=== PATIENT | male | born 1955 | race Caucasian/White ===

== ENCOUNTER 2016-06-13 16:14 | Inpatient (IN) | payer OTHER ==
[~2016-06-13] VITALS: Ht 193 cm; Wt 134.4 kg
--- NOTE | ~2016-06-13 | CON ---
[place], [place] REPORT OF CONSULTATION NAME: HAVEN CASTILLO UNIT #: [id number] ROOM: 407 DOCTOR: FRANCOIS BESS MD BIRTHDATE: [birth year] DOS: CARDIOLOGY CONSULTATION The patient was referred for evaluation of tachycardia. HISTORY OF PRESENT ILLNESS: This patient is a 61-year-old man who does have a history of hypertension and type 2 diabetes mellitus as well as a bipolar disorder. For the last 5 days, he has had increased cough, weakness and dyspnea. He was seen in the Emergency Room 3 days ago, treated with a breathing treatment and antibiotics. He was sent home on antibiotics alone, but the following day still felt weak and breathless. He was therefore brought back to the Emergency Room where he was evaluated and admitted. Initially in the Emergency Room, his pulse was 136. Electrocardiogram showed sinus tachycardia. He had no definite arrhythmia aside from the sinus tachycardia. He is being treated for an exacerbation of obstructive lung disease and asthma and we were asked to assess the cause of his tachycardia. The patient states that he has had chest pain in the past. He did have catheterizations at the [facility] in [place] approximately 18 years ago and again 6 years ago. According to the patient, the results of these studies were normal. He has not had a recent echocardiogram or stress test. PAST MEDICAL HISTORY: 1. Essential hypertension. 2. Type 2 diabetes mellitus. 3. Obstructive sleep apnea. 4. Insulin resistance. 5. Gout. 6. Diverticulosis. 7. History of pain medication overdose approximately 6 years ago. The patient had a severe pain from left first toe amputation. This was precipitated by an infection caused by an ingrown toenail. The patient was unconscious for several weeks and was on a ventilator much of that time. He subsequently had to have a tracheostomy. 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 8. History of bursitis, left elbow requiring surgery. REVIEW OF SYSTEMS: The patient denies diplopia or loss of vision. He denies lightheadedness or syncope. He denies orthopnea or PND. He actually denies palpitations, although he is aware that his heart is beating fast since we have pointed it out to him. He denies any current chest pain. He denies nausea or vomiting. He denies fevers, chills, sweats or recent weight change. He denies any focal weakness. He denies hemoptysis or hematemesis. He denies any change in bowel or bladder habits and denies bleeding from his urine or bowels. He denies any skin rashes. He denies peripheral edema or swollen joints. He has had an amputation of his left first toe. The rest of the review of systems is negative except as noted above. FAMILY HISTORY: Negative for early coronary artery disease. His mother had [place], [place] REPORT OF CONSULTATION NAME: HAVEN CASTILLO UNIT #: [id number] ROOM: 407 DOCTOR: FRANCOIS BESS MD BIRTHDATE: [birth year] lung cancer and his father had testicular cancer. SOCIAL HISTORY: The patient does not drink alcohol. He was a smoker, but has been abstinent for several years. He does not use any illicit drugs. MEDICATIONS: Prior to admission, glimepiride 4 mg b.i.d., levofloxacin 500 mg daily, lisinopril 20 mg daily, omeprazole 20 mg b.i.d., paroxetine 60 mg daily, glargine insulin 70 units subcutaneous daily and Humalog by sliding scale a.c. and at bedtime. ALLERGIES: THE PATIENT LISTS AN ALLERGY TO METHYLPREDNISOLONE. PHYSICAL EXAMINATION: GENERAL: Reveals an overweight white male who is awake, alert and oriented. He does look older than his stated age. VITAL SIGNS: Pulse is 100 and regular; blood pressure is 129/80. He is afebrile. HEENT: Normocephalic, atraumatic. Extraocular muscles are intact. Sclerae are clear. Pupils are equal, round and reactive to light. The oral mucosa is moist. Tongue is midline. NECK: Supple. He has no jugular distention. Carotids are full. I heard no bruits. He had no neck or supraclavicular masses and no thyromegaly. LUNGS: Respirations are unlabored. His chest is clear to auscultation and percussion. He has no presacral edema or chest wall tenderness. CARDIOVASCULAR: His heart has a regular rhythm. He has a fourth heart sound, but no third heart sound or murmur. The PMI is not displaced. He has no precordial heave, lift or thrill. ABDOMEN: Obese, but otherwise benign, without masses, organomegaly, bruits or tenderness. There is no rebound. EXTREMITIES: Showed no clubbing, cyanosis or edema. His left first toe is surgically absent pedal pulses; however, are bounding bilaterally. He has no hot or swollen joints and no obvious skin rashes. LABORATORY DATA: His electrocardiogram today shows sinus tachycardia with a rightward axis. It is otherwise normal tracing. CT angiogram of the chest was negative for pulmonary emboli. Hemoglobin is 13.8 with a white count of 7600. INR is 0.9. Sodium is 137, potassium 3.9, BUN 21, creatinine 0.9, sugar was 538 on admission. TSH appears to be suppressed. Initially, it was 0.348 and upon repeat it was 0.295 suggesting that the patient might have hyperthyroidism. IMPRESSIONS: 1. Sinus tachycardia. This is almost always a reaction to external factors rather than a primary heart problem. Inciting factors may include hyperthyroidism, dehydration work of breathing, bronchodilators, etc. In addition, I have reviewed his medications. Paxil in doses over 40 mg per day has been associated with sinus tachycardia in the past. 2. Essential hypertension. [place], [place] REPORT OF CONSULTATION NAME: HAVEN CASTILLO UNIT #: [id number] ROOM: 407 DOCTOR: FRANCOIS BESS MD BIRTHDATE: [birth year] 3. Type 2 diabetes mellitus managed with insulin. 4. 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 5. Obesity. PLAN: For now, the patient is being managed for an acute exacerbation of COPD. He is also being evaluated for possible hyperthyroidism. We will check an echocardiogram. I would request that the primary team decrease his dose of paroxetine. I will not treat his tachycardia, primarily at this point unless he becomes symptomatic. We will follow him with his other physicians and we thank the hospitalist group for asking our advice regarding his assessment. FRANCOIS BESS MD CM:CONSTR:REPORT OF CONSULTATION [id number] 06/15/16 1144 carolyn VILLANUEVA DO
--- NOTE | ~2016-06-13 | PR ---
[place], [place] PROGRESS NOTE NAME: HAVEN CASTILLO UNIT #: [id number] ROOM: 407 DOCTOR: FRANCOIS BESS MD BIRTHDATE: [birth year] DOS: 06/16/2016 CARDIOLOGY PROGRESS NOTE SUBJECTIVE: The patient was seen at his bedside today, 06/16/2016. He is a 61-year-old man who presented to the hospital with an acute exacerbation of underlying lung disease. He also has hypertension, type 2 diabetes mellitus and a bipolar disorder. He was noted to be tachycardic on admission. I evaluated the patient yesterday. His echocardiogram showed mild concentric left ventricular hypertrophy with hyperdynamic left ventricular systolic function. The filling pattern was normal for his age. The left atrium was mildly enlarged. There were no valve abnormalities. I felt that his tachycardia was multifactorial and due to possible hyperthyroidism, dehydration, work of breathing, bronchodilators, etc. In addition, I noted the Paxil had been associated with sinus tachycardia in other patients. Today, the patient's heart rate is in the 80s-90s and he feels well. His breathing is still limited, but is improving. No other cardiac workup is planned at this time. I think that as his breathing improves, his heart rate will continue to improve. PHYSICAL EXAMINATION: VITAL SIGNS: On exam today, his pulse is 88 and regular, blood pressure is 163/83. He is afebrile. NECK: Supple. He has no jugular distention. CHEST: Clear with expiratory prolongation, but no wheezes or rales. HEART: His heart has a regular rhythm with an S4 gallop, but no S3. ABDOMEN: Obese, but otherwise benign. EXTREMITIES: Showed no edema. IMPRESSION: 1. Sinus tachycardia. 2. Essential hypertension. 3. Type 2 diabetes mellitus on insulin. 4. 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 5. Obesity. PLAN: No other cardiac workup is planned at this time. We will be available to see him as needed and we thank the hospitalist group for asking our advice regarding his care. [place], [place] PROGRESS NOTE NAME: HAVEN CASTILLO UNIT #: [id number] ROOM: 407 DOCTOR: FRANCOIS BESS MD BIRTHDATE: [birth year] FRANCOIS BESS MD CM:PNTRANS [id number] FRANCOIS BESS MD 06/17/16 0326 interface
[~2016-06-13 16:14] MED LIST: ADVAIR 500/501 E1 IH; AMARYL4 MG PO; ANTIVERT/2525 M1 PO; ARTHROTEC50 MG PO; ASPIRIN ENTERIC81 M1 PO; ASPIRIN81 M1 PO; ATARAX25 MG PO; BACTRIM 400 MG-1 TAB PO; BACTRIM DS 8001 TA1 PO; BEPREVE15 MG/ML OP; BISA-LAX10 MG PO; BISACODYL5 MG PO; CELEXA10 MG PO; CIPRO500 MG PO; CIPRODEX 0.3%-7.5 M1 OT; DAYPRO600 M1 PO; DOXYCYCLINE MO100 MG PO; DUONEB 3 MG/3 ML3 M1 IH; DUONEB 3 MG/3 ML3 M1 NEB; ERYTHROMYCIN OPH1 GM OP; FLEXERIL5 MG PO; FLOMAX0.4 MG PO; FLUCONAZOLE100 MG PO; GENTAMICIN SU3 MG/ML OP; GLIPIZIDE5 MG PO; HCTZ PO; HUMALOG 751 UNIT/0.0 SC; HUMALOG100 U/ML SC; HYDR25T PO; JANUVIA100 MG; JANUVIA100 MG PO; K-Dur 20MEQ20 MEQ PO; LANTUS100 U/ML SC; LASIX40 MG PO; LEVAQUIN750 MG PO; LEVOFLOXACIN500 MG PO; LISINOPRIL20 MG PO; Lovenox40 MG/0.4 SC; MAPAP325 MG PO; MEDROL DOSEPAK4 MG PO; METFORMIN1000 MG PO; MOM30 M1 PO; MOM30 ML PO; MOTRIN800 MG PO; MUCOMYST 4 ML4 M1 NEB; MYSOLINE50 M1 OP; MYSOLINE50 M1 PO; NAPROSYN500 MG PO; ONDANSETRON2 MG/ML IV; PAXIL40 MG PO; PERCOCET 325 MG1 TA2 PO; PREDNISONE20 MG PO; PRILOSEC20 MG PO; PRIMIDONE PO; ROBITUSSIN AC 110 ML PO; ROCEPHIN1 GM IV; SEPTRA DS 800 M1 TAB PO; SEROQUEL100 MG PO; SKELAXIN800 MG PO; SOLU-CORTEF100 MG IV; SOLU-MEDROL40 MG IV; SONATA5 MG PO; SYSTANE 0.4%-0.1 SOL OP; TOBRAMYCIN AND D5 ML OPH; TOUJEO300 U/ML SC; TYLENOL ARTHRI650 MG PO; VIBRAMYCIN100 MG PO; VICODIN 500 MG-1 TAB PO; VIGAMOX 0.5% 3 M3 ML OP; VIGAMOX 0.5% 3 M3 ML OPH; VITAMIN D2000 IU PO; Vicodin 5/325 PO; ZOCOR40 MG PO; ZOFRAN ODT4 MG SL; ZYVOX600 MG PO; [UNRECOGNIZED DRUG - OTHER] IV
[2016-06-13 16:37] VITALS: BP 130/0
[2016-06-13 16:53] LABS: BASO % 0.4 % (0.0-1.0); EOS # 0.1 10*3/uL (0.0-0.4); EOS % 0.9 % (1.0-4.0); HEMATOCRIT 44.9 % (42.0-52.0); HEMOGLOBIN 15.3 g/dl (14.0-18.0); LYMPH # 0.9 10*3/uL (1.3-4.4); LYMPH % 9.8 % (27.0-41.0); MEAN CORPUSCULAR HGB CONC 34.1 g/dl (33.0-37.0); MEAN PLATELET VOLUME 11.5 fl (9.6-12.3); MONO # 0.9 10*3/uL (0.1-1.0); MONO % 10.5 % (3.0-9.0); PLATELET COUNT AUTOMATED 164 10*3/uL (130-400); RED BLOOD COUNT 5.28 10*6/uL (4.50-5.90); RED CELL DISTRI WIDTH 12.4 % (0-14.5); WHITE BLOOD COUNT 8.9 10*3/uL (4.8-10.8)
[2016-06-13 17:06] LABS: BUN 15 mg/dl (7-24); CARBON DIOXIDE 26 mmol/L (21-32); CHLORIDE 99 mmol/L (98-107); EST GLOM FILT AFRICAN AMERICAN > 60 ml/min; GLUCOSE 219 mg/dL (65-99); SODIUM 136 mmol/L (136-145)
[2016-06-13 17:19] VITALS: BP 140/93
[2016-06-13 19:14] VITALS: BP 118/68
[2016-06-13 20:06] VITALS: BP 120/70
[2016-06-13 20:20] VITALS: BP 107/68
[2016-06-14] VITALS: BP 142/78
[2016-06-14 01:29] LABS: CKMB 3.5 ng/ml (0.5-3.6)
[2016-06-14 04:00] VITALS: BP 140/79
[2016-06-14 06:37] LABS: BASO % 0.3 % (0.0-1.0); HEMATOCRIT 46.5 % (42.0-52.0); HEMOGLOBIN 15.2 g/dl (14.0-18.0); IG # 0.1 10*3/uL (0.0-0.1); LYMPH # 0.7 10*3/uL (1.3-4.4); LYMPH % 8.1 % (27.0-41.0); MEAN CORPUSCULAR HGB 28.8 pg (27.0-31.0); MEAN CORPUSCULAR HGB CONC 32.7 g/dl (33.0-37.0); MEAN PLATELET VOLUME 11.7 fl (9.6-12.3); MONO # 0.6 10*3/uL (0.1-1.0); MONO % 6.3 % (3.0-9.0); NEUT # 7.6 10*3/uL (2.3-7.9); NEUT % 84.7 % (47.0-73.0); PLATELET COUNT AUTOMATED 172 10*3/uL (130-400); RED BLOOD COUNT 5.28 10*6/uL (4.50-5.90); RED CELL DISTRI WIDTH 12.6 % (0-14.5); WHITE BLOOD COUNT 8.9 10*3/uL (4.8-10.8)
[2016-06-14 06:40] LABS: MEAN CELL VOLUME 88.1 fl (80.0-94.0)
[2016-06-14 06:57] LABS: CKMB 4.9 ng/ml (0.5-3.6)
[2016-06-14 07:03] LABS: HEMOGLOBIN A1c 9.4 % (4.8-5.6)
[2016-06-14 07:17] LABS: INTERNATIONAL NORM RATIO 0.9 (2.0-3.5)
[2016-06-14 07:25] LABS: MAGNESIUM 2.1 mg/dL (1.5-2.1); THYROID STIM HORMONE (HS) 0.348 uIU/ml (0.358-4.75)
[2016-06-14 07:35] LABS: ALBUMIN 3.9 gm/dl (3.1-4.5); BILIRUBIN, TOTAL 0.8 mg/dl (0.2-1.0); TOTAL PROTEIN 7.7 gm/dL (6.4-8.2)
[2016-06-14 08:00] VITALS: BP 135/68
[2016-06-14 12:00] VITALS: BP 131/55
[2016-06-14 12:17] LABS: CKMB 4.5 ng/ml (0.5-3.6)
[2016-06-14 16:00] VITALS: BP 145/74
[2016-06-14 20:00] VITALS: BP 121/70
[2016-06-14 22:06] LABS: FREE T4 1.02 ng/dl (0.76-1.46); THYROID STIM HORMONE (HS) 0.295 uIU/ml (0.358-4.75)
[2016-06-15] VITALS: BP 128/71
[2016-06-15 08:00] VITALS: BP 129/80
[2016-06-15 08:59] LABS: BASO % 0.1 % (0.0-1.0); HEMATOCRIT 40.9 % (42.0-52.0); HEMOGLOBIN 13.8 g/dl (14.0-18.0); LYMPH # 0.8 10*3/uL (1.3-4.4); LYMPH % 10.7 % (27.0-41.0); MEAN CELL VOLUME 86.1 fl (80.0-94.0); MEAN CORPUSCULAR HGB 29.1 pg (27.0-31.0); MEAN CORPUSCULAR HGB CONC 33.7 g/dl (33.0-37.0); MEAN PLATELET VOLUME 11.9 fl (9.6-12.3); MONO # 0.7 10*3/uL (0.1-1.0); NEUT % 79.8 % (47.0-73.0); PLATELET COUNT AUTOMATED 149 10*3/uL (130-400); RED BLOOD COUNT 4.75 10*6/uL (4.50-5.90); RED CELL DISTRI WIDTH 12.4 % (0-14.5); WHITE BLOOD COUNT 7.6 10*3/uL (4.8-10.8)
[2016-06-15 09:25] LABS: BUN 21 mg/dl (7-24); CARBON DIOXIDE 28 mmol/L (21-32); CHLORIDE 100 mmol/L (98-107); EST GLOM FILT AFRICAN AMERICAN > 60 ml/min; GLUCOSE 209 mg/dL (65-99); POTASSIUM 3.9 mmol/L (3.5-5.1); SODIUM 137 mmol/L (136-145)
[2016-06-15] MEDS ORDERED: MYSOLINE50 M2 PO (11:59)
[2016-06-15 12:00] VITALS: BP 148/83
[2016-06-15 16:00] VITALS: BP 122/70; BP 131/73
[2016-06-15 20:00] VITALS: BP 139/81
[2016-06-16] VITALS: BP 157/88
[2016-06-16 06:25] LABS: BASO % 0.1 % (0.0-1.0); HEMATOCRIT 39.9 % (42.0-52.0); LYMPH # 1.1 10*3/uL (1.3-4.4); LYMPH % 15.9 % (27.0-41.0); MEAN CELL VOLUME 86.9 fl (80.0-94.0); MEAN CORPUSCULAR HGB 28.3 pg (27.0-31.0); MEAN CORPUSCULAR HGB CONC 32.6 g/dl (33.0-37.0); MEAN PLATELET VOLUME 11.8 fl (9.6-12.3); MONO # 0.6 10*3/uL (0.1-1.0); MONO % 9.1 % (3.0-9.0); NEUT # 5.1 10*3/uL (2.3-7.9); NEUT % 74.3 % (47.0-73.0); PLATELET COUNT AUTOMATED 143 10*3/uL (130-400); RED BLOOD COUNT 4.59 10*6/uL (4.50-5.90); RED CELL DISTRI WIDTH 12.6 % (0-14.5); WHITE BLOOD COUNT 6.8 10*3/uL (4.8-10.8)
[2016-06-16 06:33] LABS: BUN 19 mg/dl (7-24); CARBON DIOXIDE 27 mmol/L (21-32); CHLORIDE 99 mmol/L (98-107); EST GLOM FILT AFRICAN AMERICAN > 60 ml/min; GLUCOSE 222 mg/dL (65-99); POTASSIUM 4.1 mmol/L (3.5-5.1); SODIUM 135 mmol/L (136-145)
[2016-06-16 08:00] VITALS: BP 152/82
[2016-06-16 12:00] VITALS: BP 156/79
[2016-06-16 14:39] LABS: FOLIC ACID 16.75 ng/mL (>5.38)
[2016-06-16 16:19] VITALS: BP 163/83
[2016-06-16 20:00] VITALS: BP 152/81
[2016-06-17] VITALS: BP 157/90
[2016-06-17 08:00] VITALS: BP 128/74
[2016-06-17] MEDS ORDERED: DOXYCYCLINE100 MG PO (10:54)
[2016-06-17] MEDS ORDERED: PREDNISONE10 MG PO (10:54)
[2016-06-17] MEDS ORDERED: PAROXETINE HCL10 MG PO (10:54)
[2016-08-04] MEDS ORDERED: BACTRIM DS 8001 TA1 PO (00:45)
== END 2016-06-17 13:56 | disposition home or self-care (01) | DRG 871 ==
LOC: ED 16:14 → 4E 19:29 → EDHOLD 19:29 → 4E 19:45
PROVIDERS: Emergency Medicine; Internal Medicine; Internal Medicine Cardiovascular Disease
DX: A41.9 Sepsis, unspecified organism (principal); J18.9 Pneumonia, unspecified organism; J96.01 Acute respiratory failure with hypoxia; N17.0 Acute kidney failure with tubular necrosis; E11.65 Type 2 diabetes mellitus with hyperglycemia; E87.1 Hypo-osmolality and hyponatremia; J45.901 Unspecified asthma with (acute) exacerbation; R65.20 Severe sepsis without septic shock; F31.9 Bipolar disorder, unspecified; M19.90 Unspecified osteoarthritis, unspecified site; Z96.651 Presence of right artificial knee joint; E66.9 Obesity, unspecified; G47.33 Obstructive sleep apnea (adult) (pediatric); M10.9 Gout, unspecified; E05.80 Other thyrotoxicosis without thyrotoxic crisis or storm; J44.9 Chronic obstructive pulmonary disease, unspecified; Z79.899 Other long term (current) drug therapy; Z93.0 Tracheostomy status; Z68.36 Body mass index [BMI] 36.0-36.9, adult; Z98.890 Other specified postprocedural states; Z88.8 Allergy status to other drugs, medicaments and biological substances; Z86.718 Personal history of other venous thrombosis and embolism; Z79.4 Long term (current) use of insulin; Z90.49 Acquired absence of other specified parts of digestive tract; Z87.891 Personal history of nicotine dependence; Z82.5 Family history of asthma and other chronic lower respiratory diseases; Z80.1 Family history of malignant neoplasm of trachea, bronchus and lung; Z80.43 Family history of malignant neoplasm of testis

== ENCOUNTER → 2016-11-12 | Outpatient (CLI) | payer OTHER ==
[~2016-11-12] MED LIST changes: +DOXYCYCLINE100 MG PO; +MYSOLINE50 M2 PO; +PAROXETINE HCL10 MG PO; +PREDNISONE10 MG PO
== END | disposition home or self-care (01) ==
LOC: ORTHO 03:24
DX: M17.12 Unilateral primary osteoarthritis, left knee (principal); M25.462 Effusion, left knee

== ENCOUNTER → 2016-11-24 | Outpatient (CLI) | payer OTHER ==
[2016-11-24 12:34] LABS: BASO # 0.1 10*3/uL (0.0-0.1); BASO % 0.6 % (0.0-1.0); EOS # 0.1 10*3/uL (0.0-0.4); EOS % 1.3 % (1.0-4.0); HEMATOCRIT 45.1 % (42.0-52.0); HEMOGLOBIN 15.5 g/dl (14.0-18.0); IG # 0.1 10*3/uL (0.0-0.1); LYMPH # 1.8 10*3/uL (1.3-4.4); LYMPH % 21.1 % (27.0-41.0); MEAN CELL VOLUME 83.8 fl (80.0-94.0); MEAN CORPUSCULAR HGB 28.8 pg (27.0-31.0); MEAN CORPUSCULAR HGB CONC 34.4 g/dl (33.0-37.0); MEAN PLATELET VOLUME 12.5 fl (9.6-12.3); MONO # 0.7 10*3/uL (0.1-1.0); MONO % 7.8 % (3.0-9.0); NEUT # 5.8 10*3/uL (2.3-7.9); NEUT % 68.6 % (47.0-73.0); PLATELET COUNT AUTOMATED 173 10*3/uL (130-400); RED BLOOD COUNT 5.38 10*6/uL (4.50-5.90); RED CELL DISTRI WIDTH 12.3 % (0-14.5); WHITE BLOOD COUNT 8.4 10*3/uL (4.8-10.8)
[2016-11-24 12:51] LABS: HEMOGLOBIN A1c 8.4 % (4.8-5.6)
[2016-11-24 12:54] LABS: ALKALINE PHOSPHATASE 116 U/L (45-117); BILIRUBIN, DIRECT 0.2 mg/dL (0.0-0.2); BILIRUBIN, TOTAL 0.9 mg/dl (0.2-1.0); BUN 15 mg/dl (7-24); CARBON DIOXIDE 29 mmol/L (21-32); CHLORIDE 103 mmol/L (98-107); CHOLESTEROL 135 mg/dL (<200); EST GLOM FILT AFRICAN AMERICAN > 60 ml/min; GLUCOSE 169 mg/dL (65-99); HDL CHOLESTEROL 41 mg/dl (40-60); LDL CHOLESTEROL 74 mg/dL (9-159); POTASSIUM 4.1 mmol/L (3.5-5.1); SGOT/AST 24 IU/L (3-35); SGPT/ALT 43 U/L (12-78); SODIUM 140 mmol/L (136-145); THYROXINE (T4) TOTAL 8.8 ug/dl (4.5-12.1); TOTAL PROTEIN 7.4 gm/dL (6.4-8.2); TRIGLYCERIDES 99 mg/dl (<150); VLDL CHOLESTEROL 20 mg/dL (6-40)
== END | disposition home or self-care (01) ==
LOC: LAB 12:05
PROVIDERS: Family Medicine
DX: I10 Essential (primary) hypertension (principal); E11.9 Type 2 diabetes mellitus without complications; E29.1 Testicular hypofunction

== ENCOUNTER 2016-12-14 13:24 | Emergency (ER) | payer OTHER ==
[~2016-12-14] VITALS: Wt 136.1 kg
[2016-12-14 13:36] VITALS: BP 168/87
[2016-12-14] MEDS ORDERED: TESTOSTERO200 MG/10 IM (13:41)
[2016-12-14] MEDS ORDERED: METFORMIN HCL1000 MG PO (13:41)
[2016-12-14] MEDS ORDERED: POTASSIUM CHLO20 ME4 PO (13:41)
[2016-12-14] MEDS ORDERED: HYDROCODONE BIT1 T11 PO (14:02)
[2016-12-14] MEDS ORDERED: VALTREX1 GM PO (14:02)
[2016-12-14] MEDS ORDERED: VALACYCLOVIR HYD1 GM PO (14:06)
== END 2016-12-14 14:41 | disposition home or self-care (01) ==
LOC: ED 13:24
DX: B02.9 Zoster without complications (principal); R03.0 Elevated blood-pressure reading, without diagnosis of hypertension; Z87.891 Personal history of nicotine dependence; Z90.49 Acquired absence of other specified parts of digestive tract; M19.90 Unspecified osteoarthritis, unspecified site; E03.9 Hypothyroidism, unspecified; J45.909 Unspecified asthma, uncomplicated; I10 Essential (primary) hypertension; Z86.718 Personal history of other venous thrombosis and embolism; E11.9 Type 2 diabetes mellitus without complications; Z88.8 Allergy status to other drugs, medicaments and biological substances; Z79.4 Long term (current) use of insulin; Z79.899 Other long term (current) drug therapy

== ENCOUNTER → 2017-01-11 | Outpatient (CLI) | payer OTHER ==
[~2017-01-11] MED LIST changes: +HYDROCODONE BIT1 T11 PO; +METFORMIN HCL1000 MG PO; +POTASSIUM CHLO20 ME4 PO; +TESTOSTERO200 MG/10 IM; +VALACYCLOVIR HYD1 GM PO; +VALTREX1 GM PO
== END | disposition home or self-care (01) ==
LOC: LAB 13:55
DX: E29.1 Testicular hypofunction (principal)

== ENCOUNTER 2017-02-02 09:36 | Emergency (ER) | payer OTHER ==
[~2017-02-02] VITALS: Ht 193 cm; Wt 127.0 kg
[2017-02-02 10:19] VITALS: BP 159/95
[2017-02-02 10:23] LABS: BASO # 0.1 10*3/uL (0.0-0.1); BASO % 0.9 % (0.0-1.0); EOS # 0.2 10*3/uL (0.0-0.4); EOS % 2.3 % (1.0-4.0); HEMATOCRIT 48.5 % (42.0-52.0); HEMOGLOBIN 16.5 g/dl (14.0-18.0); LYMPH # 1.5 10*3/uL (1.3-4.4); LYMPH % 20.7 % (27.0-41.0); MEAN CELL VOLUME 83.6 fl (80.0-94.0); MEAN CORPUSCULAR HGB 28.4 pg (27.0-31.0); MEAN PLATELET VOLUME 13.5 fl (9.6-12.3); MONO # 0.6 10*3/uL (0.1-1.0); MONO % 8.1 % (3.0-9.0); NEUT # 4.7 10*3/uL (2.3-7.9); NEUT % 67.6 % (47.0-73.0); PLATELET COUNT AUTOMATED 165 10*3/uL (130-400); RED CELL DISTRI WIDTH 13.2 % (0-14.5)
[2017-02-02 10:48] LABS: ALBUMIN 3.7 gm/dl (3.1-4.5); ALKALINE PHOSPHATASE 138 U/L (45-117); BUN 13 mg/dl (7-24); CHLORIDE 98 mmol/L (98-107); CREATININE 1.09 mg/dL (0.70-1.30); LIPASE 241 U/L (73-393); POTASSIUM 4.1 mmol/L (3.5-5.1); SGOT/AST 26 IU/L (3-35); SGPT/ALT 36 U/L (12-78); SODIUM 135 mmol/L (136-145); TOTAL PROTEIN 7.4 gm/dL (6.4-8.2)
[2017-02-02 10:50] LABS: TROPONIN I < 0.015 ng/ml (<0.045)
[2017-02-02] MEDS ORDERED: MOTION SICKNESS25 MG PO (12:25)
== END 2017-02-02 13:00 | disposition home or self-care (01) ==
LOC: ED 09:36
PROVIDERS: Nurse Practitioner
DX: E87.1 Hypo-osmolality and hyponatremia (principal); R42 Dizziness and giddiness; I10 Essential (primary) hypertension; E11.9 Type 2 diabetes mellitus without complications; Z87.891 Personal history of nicotine dependence; Z90.49 Acquired absence of other specified parts of digestive tract; Z96.651 Presence of right artificial knee joint; Z98.890 Other specified postprocedural states; Z79.899 Other long term (current) drug therapy; Z88.6 Allergy status to analgesic agent

== ENCOUNTER → 2017-08-11 | Outpatient (CLI) | payer OTHER ==
[~2017-08-11] MED LIST changes: +MOTION SICKNESS25 MG PO
[2017-08-11 17:04] LABS: BASO # 0.1 10*3/uL (0.0-0.1); BASO % 1.1 % (0.0-1.0); EOS # 0.2 10*3/uL (0.0-0.4); EOS % 2.8 % (1.0-4.0); HEMATOCRIT 48.5 % (42.0-52.0); HEMOGLOBIN 16.6 g/dl (14.0-18.0); LYMPH # 1.7 10*3/uL (1.3-4.4); LYMPH % 26.6 % (27.0-41.0); MEAN CELL VOLUME 85.1 fl (80.0-94.0); MEAN CORPUSCULAR HGB 29.1 pg (27.0-31.0); MEAN CORPUSCULAR HGB CONC 34.2 g/dl (33.0-37.0); MEAN PLATELET VOLUME 12.3 fl (9.6-12.3); MONO # 0.5 10*3/uL (0.1-1.0); MONO % 7.9 % (3.0-9.0); NEUT # 3.9 10*3/uL (2.3-7.9); NEUT % 61.1 % (47.0-73.0); PLATELET COUNT AUTOMATED 167 10*3/uL (130-400); RED CELL DISTRI WIDTH 12.7 % (0-14.5); WHITE BLOOD COUNT 6.4 10*3/uL (4.8-10.8)
[2017-08-11 17:31] LABS: ALBUMIN 4.1 gm/dl (3.1-4.5); ALKALINE PHOSPHATASE 122 U/L (45-117); BILIRUBIN, DIRECT 0.2 mg/dL (0.0-0.2); BUN 17 mg/dl (7-24); CHLORIDE 101 mmol/L (98-107); CHOLESTEROL 163 mg/dL (<200); CREATININE 1.07 mg/dL (0.70-1.30); HDL CHOLESTEROL 33 mg/dl (40-60); LDL CHOLESTEROL 94 mg/dL (9-159); SGOT/AST 25 IU/L (3-35); SGPT/ALT 38 U/L (12-78); SODIUM 136 mmol/L (136-145); THYROXINE (T4) TOTAL 7.1 ug/dl (4.5-12.1); TOTAL PROTEIN 7.6 gm/dL (6.4-8.2); TRIGLYCERIDES 180 mg/dl (<150); VLDL CHOLESTEROL 36 mg/dL (6-40)
== END | disposition home or self-care (01) ==
LOC: LAB 16:28
PROVIDERS: Family Medicine
DX: E11.9 Type 2 diabetes mellitus without complications (principal); E78.00 Pure hypercholesterolemia, unspecified; I10 Essential (primary) hypertension

== ENCOUNTER → 2017-09-23 | Outpatient (CLI) | payer OTHER | END | disposition home or self-care (01) | LOC: LAB 15:53 | DX: E29.1 Testicular hypofunction (principal) ==

== ENCOUNTER → 2018-02-14 | Outpatient (CLI) | payer OTHER ==
[2018-02-14 14:12] LABS: BASO # 0.1 10*3/uL (0.0-0.1); BASO % 0.8 % (0.0-1.0); EOS # 0.1 10*3/uL (0.0-0.4); EOS % 1.7 % (1.0-4.0); HEMATOCRIT 46.7 % (42.0-52.0); HEMOGLOBIN 15.7 g/dl (14.0-18.0); LYMPH # 1.8 10*3/uL (1.3-4.4); LYMPH % 27.6 % (27.0-41.0); MEAN CELL VOLUME 87.3 fl (80.0-94.0); MEAN CORPUSCULAR HGB 29.3 pg (27.0-31.0); MEAN CORPUSCULAR HGB CONC 33.6 g/dl (33.0-37.0); MEAN PLATELET VOLUME 11.6 fl (9.6-12.3); MONO # 0.4 10*3/uL (0.1-1.0); MONO % 6.9 % (3.0-9.0); NEUT % 62.4 % (47.0-73.0); PLATELET COUNT AUTOMATED 157 10*3/uL (130-400); RED BLOOD COUNT 5.35 10*6/uL (4.50-5.90); RED CELL DISTRI WIDTH 12.5 % (0-14.5); WHITE BLOOD COUNT 6.4 10*3/uL (4.8-10.8)
[2018-02-14 14:45] LABS: BILIRUBIN, DIRECT 0.2 mg/dL (0.0-0.2); BUN 19 mg/dl (7-24); CHLORIDE 102 mmol/L (98-107); POTASSIUM 4.3 mmol/L (3.5-5.1); SODIUM 137 mmol/L (136-145)
[2018-02-14 14:48] LABS: ALKALINE PHOSPHATASE 109 U/L (45-117); CREATININE 1.15 mg/dL (0.70-1.30); SGOT/AST 20 IU/L (3-35); SGPT/ALT 43 U/L (12-78); TOTAL PROTEIN 7.3 gm/dL (6.4-8.2)
== END | disposition home or self-care (01) ==
LOC: LAB 13:37
PROVIDERS: Family Medicine
DX: E11.9 Type 2 diabetes mellitus without complications (principal)

== ENCOUNTER → 2018-07-21 | Outpatient (CLI) | payer OTHER ==
[2018-07-21 14:54] LABS: BASO # 0.1 10*3/uL (0.0-0.1); EOS # 0.2 10*3/uL (0.0-0.4); EOS % 2.6 % (1.0-4.0); HEMATOCRIT 47.4 % (42.0-52.0); HEMOGLOBIN 16.1 g/dl (14.0-18.0); LYMPH # 2.1 10*3/uL (1.3-4.4); LYMPH % 29.8 % (27.0-41.0); MEAN CELL VOLUME 87.3 fl (80.0-94.0); MEAN CORPUSCULAR HGB 29.7 pg (27.0-31.0); MEAN PLATELET VOLUME 12.1 fl (9.6-12.3); MONO # 0.6 10*3/uL (0.1-1.0); PLATELET COUNT AUTOMATED 165 10*3/uL (130-400); RED BLOOD COUNT 5.43 10*6/uL (4.50-5.90); RED CELL DISTRI WIDTH 12.6 % (0-14.5); WHITE BLOOD COUNT 6.9 10*3/uL (4.8-10.8)
[2018-07-21 15:21] LABS: ALBUMIN 3.9 gm/dl (3.1-4.5); ALKALINE PHOSPHATASE 112 U/L (45-117); BILIRUBIN, DIRECT 0.2 mg/dL (0.0-0.2); BUN 16 mg/dl (7-24); CHLORIDE 101 mmol/L (98-107); POTASSIUM 4.1 mmol/L (3.5-5.1); SGOT/AST 17 IU/L (3-35); SGPT/ALT 39 U/L (12-78); SODIUM 139 mmol/L (136-145); TOTAL PROTEIN 7.7 gm/dL (6.4-8.2)
== END | disposition home or self-care (01) ==
LOC: LAB 14:09
PROVIDERS: Family Medicine
DX: E11.9 Type 2 diabetes mellitus without complications (principal)

== ENCOUNTER → 2019-02-23 | Outpatient (CLI) | payer OTHER ==
[~2019-02-23] MED LIST changes: +AUGMENTIN 875-875 MG PO; +NORCO 5-325 TA1 EACH PO; +VITAMIN D32000 UNI1 PO
[2019-02-23 12:27] LABS: BASO # 0.1 10*3/uL (0.0-0.1); EOS # 0.1 10*3/uL (0.0-0.4); EOS % 2.1 % (1.0-4.0); HEMATOCRIT 47.1 % (42.0-52.0); LYMPH # 1.5 10*3/uL (1.3-4.4); LYMPH % 23.8 % (27.0-41.0); MEAN CELL VOLUME 84.9 fl (80.0-94.0); MEAN CORPUSCULAR HGB 28.8 pg (27.0-31.0); MONO # 0.5 10*3/uL (0.1-1.0); MONO % 7.6 % (3.0-9.0); PLATELET COUNT AUTOMATED 167 10*3/uL (130-400); RED BLOOD COUNT 5.55 10*6/uL (4.50-5.90); RED CELL DISTRI WIDTH 12.7 % (0-14.5); WHITE BLOOD COUNT 6.2 10*3/uL (4.8-10.8)
[2019-02-23 12:58] LABS: ALBUMIN 4.3 gm/dl (3.1-4.5); ALKALINE PHOSPHATASE 122 U/L (45-117); BILIRUBIN, DIRECT 0.2 mg/dL (0.0-0.2); BUN 16 mg/dl (7-24); CHLORIDE 100 mmol/L (98-107); CHOLESTEROL 147 mg/dL (<200); CREATININE 1.22 mg/dL (0.70-1.30); HDL CHOLESTEROL 35 mg/dl (40-60); LDL CHOLESTEROL 85 mg/dL (9-159); POTASSIUM 4.2 mmol/L (3.5-5.1); SGOT/AST 18 IU/L (3-35); SGPT/ALT 32 U/L (12-78); SODIUM 135 mmol/L (136-145); TOTAL PROTEIN 7.7 gm/dL (6.4-8.2); TRIGLYCERIDES 134 mg/dl (<150); VLDL CHOLESTEROL 27 mg/dL (6-40)
== END | disposition home or self-care (01) ==
LOC: LAB 11:37
PROVIDERS: Family Medicine
DX: Z12.5 Encounter for screening for malignant neoplasm of prostate (principal); I10 Essential (primary) hypertension; E11.9 Type 2 diabetes mellitus without complications

== ENCOUNTER 2019-03-26 13:05 | Inpatient (IN) | payer OTHER ==
[~2019-03-26] VITALS: Ht 193 cm; Wt 129.1 kg
[~2019-03-26 13:05] MED LIST changes: -AUGMENTIN 875-875 MG PO; -NORCO 5-325 TA1 EACH PO; -VITAMIN D32000 UNI1 PO
[2019-03-26 13:07] VITALS: BP 142/76
[2019-03-26 13:46] LABS: BASO % 0.6 % (0.0-1.0); EOS # 0.1 10*3/uL (0.0-0.4); EOS % 1.9 % (1.0-4.0); HEMATOCRIT 40.5 % (42.0-52.0); HEMOGLOBIN 13.7 g/dl (14.0-18.0); LYMPH # 1.1 10*3/uL (1.3-4.4); LYMPH % 16.5 % (27.0-41.0); MEAN CELL VOLUME 85.3 fl (80.0-94.0); MEAN CORPUSCULAR HGB 28.8 pg (27.0-31.0); MEAN CORPUSCULAR HGB CONC 33.8 g/dl (33.0-37.0); MEAN PLATELET VOLUME 11.6 fl (9.6-12.3); MONO # 0.6 10*3/uL (0.1-1.0); MONO % 9.1 % (3.0-9.0); NEUT # 4.9 10*3/uL (2.3-7.9); NEUT % 71.5 % (47.0-73.0); PLATELET COUNT AUTOMATED 186 10*3/uL (130-400); RED BLOOD COUNT 4.75 10*6/uL (4.50-5.90); RED CELL DISTRI WIDTH 12.4 % (0-14.5); WHITE BLOOD COUNT 6.9 10*3/uL (4.8-10.8)
[2019-03-26 14:00] LABS: ALBUMIN 3.3 gm/dl (3.1-4.5); ALKALINE PHOSPHATASE 111 U/L (45-117); BUN 16 mg/dl (7-24); CHLORIDE 99 mmol/L (98-107); CREATININE 1.06 mg/dL (0.70-1.30); POTASSIUM 4.1 mmol/L (3.5-5.1); SGOT/AST 16 IU/L (3-35); SGPT/ALT 40 U/L (12-78); SODIUM 133 mmol/L (136-145); TOTAL PROTEIN 7.3 gm/dL (6.4-8.2)
--- NOTE | 2019-03-26 15:59 | NUR ---
THE PT DID REFUSED A PHOTO OF THE WOUND TO HIS BUTTOCK
[2019-03-26 16:08] VITALS: BP 149/83
--- NOTE | 2019-03-26 16:08 | NUR ---
A 63, admitted to , under the services of FRED Castro DO with a diagnosis of PERIRECTAL ABSCESS. Chief complaint is ABSCESS. Patient arrived via bed from ER. Monitor applied. Initial assessment completed. Vital signs taken and recorded. FRED CASTRO DO notified of admission to the unit. Orders received. See assessment for past medical history, medications and allergies. Patient and/or family oriented to unit. [facility] visitation policy reviewed. Clothing/patient valuable form completed. ROHITH FREEMAN
--- NOTE | 2019-03-26 17:25 | NUR ---
PT GIVEN 2MG IV MORPHINE AT THIS TIME FOR C/O PAIN TO PERIRECTAL ABSCESS. PT IV SITE PATENT, FLUSHING WITH EASE. NO OTHER S/S OF DISTRESS NOTED. WILL MONITOR. CALL LIGHT IN REACH.
--- NOTE | 2019-03-26 18:25 | NUR ---
MORPHINE EFFECTIVE PER PT.
[2019-03-26 20:00] VITALS: BP 151/60
--- NOTE | 2019-03-26 21:54 | NUR ---
PATIENT MEDICATED WITH MORPHINE FOR COMPLAINTS OF RIGHT BUTTOCKS PAIN. WILL CONTINUE TO MONITOR. CALL LIGHT IN REACH.
[2019-03-27] VITALS (10 sets, daily range): BP systolic 114–153; BP diastolic 62–93
[2019-03-27 06:09] LABS: ALKALINE PHOSPHATASE 91 U/L (45-117); BUN 13 mg/dl (7-24); CHLORIDE 99 mmol/L (98-107); CHOLESTEROL 108 mg/dL (<200); CREATININE 0.85 mg/dL (0.70-1.30); HDL CHOLESTEROL 24 mg/dl (40-60); LDL CHOLESTEROL 67 mg/dL (9-159); PHOSPHOROUS 3.4 mg/dL (2.5-4.9); POTASSIUM 3.5 mmol/L (3.5-5.1); SGOT/AST 17 IU/L (3-35); SGPT/ALT 38 U/L (12-78); SODIUM 135 mmol/L (136-145); TOTAL PROTEIN 6.6 gm/dL (6.4-8.2); TRIGLYCERIDES 86 mg/dl (<150); VLDL CHOLESTEROL 17 mg/dL (6-40)
[2019-03-27 06:14] LABS: BASO # 0.1 10*3/uL (0.0-0.1); BASO % 0.6 % (0.0-1.0); EOS # 0.2 10*3/uL (0.0-0.4); HEMATOCRIT 37.8 % (42.0-52.0); HEMOGLOBIN 12.6 g/dl (14.0-18.0); LYMPH # 1.4 10*3/uL (1.3-4.4); LYMPH % 16.3 % (27.0-41.0); MEAN CELL VOLUME 86.7 fl (80.0-94.0); MEAN CORPUSCULAR HGB 28.9 pg (27.0-31.0); MEAN CORPUSCULAR HGB CONC 33.3 g/dl (33.0-37.0); MEAN PLATELET VOLUME 11.6 fl (9.6-12.3); MONO # 0.9 10*3/uL (0.1-1.0); MONO % 10.5 % (3.0-9.0); NEUT # 5.9 10*3/uL (2.3-7.9); NEUT % 70.1 % (47.0-73.0); PLATELET COUNT AUTOMATED 187 10*3/uL (130-400); RED BLOOD COUNT 4.36 10*6/uL (4.50-5.90); RED CELL DISTRI WIDTH 12.4 % (0-14.5); WHITE BLOOD COUNT 8.5 10*3/uL (4.8-10.8)
[2019-03-27 06:48] LABS: ACT PARTIAL THROMBO TIME 26.4 SECONDS (20.0-32.1); INTERNATIONAL NORM RATIO 0.9 (2.0-3.5)
--- NOTE | 2019-03-27 06:58 | NUR ---
HAVEN CASTILLO [id number] Please refer to the physician's history and physical for past medical history, comorbid conditions, and allergies. Diagnosis: PERIRECTAL ABSCESS Gibson Score: 23,LOW OR NO RISK WOUND DESCRIPTIONS: Wound Number: 1 Location of the wound: Right buttocks Type of wound: abscess Thickness: Full Size: 0.6cm x 1.0cm x 4.0cm Tunneling: none Undermining: none Sinus Tract: none Presence of Exudate: Purulent Amount: Moderate Color: Yellow, red Odor: None Periwound Skin Appearance: Erythema Wound edges: approximated Pain (associated with wound): none at time of assessment How does patient state this happened? pt stated this started 6 days ago and it started to drain foul smelling drainage 2 days ago he stated this never happened to him in the past but he does have a history of MRSA. He stated he will follow up in the wound care center once he is discharged and it doesn't matter what day of the week any day will work for him. Surface the patient is resting on: Isoflex SKIN PREVENTION RECOMMENDATION: 1. Pressure redistribution support surface as appropriate 2. Elevate heels 3. Remove boots/TEDS every shift and reapply 4. Head of bed 30 degrees as tolerated 5. Assess nutrition and hydration 6. Manage moisture 7. Avoid the use of containment devices while in bed 8. Use absorptive products on surfaces limit layers of linens on bed 9. Turn and reposition every 1-2 hours in bed and every 1 hour in chair as tolerated 10. Weight shifts every 15 minutes while up in chair 11. Offloading with pillows or device to keep heels elevated off bed 12. Monitor skin at least every shift 13. Inspect under medical devices twice a day WOUND TREATMENT RECOMMENDATIONS: Dr. Pizarro is already on consult and stated he will put orders in for surgery today he stated he already scheduled it with surgery yesterday. Cleanse right buttocks with nss and apply abd pad and cover with mesh panties to keep in place. Wheelchair cushion when oob.
[2019-03-27 07:18] LABS: VITAMIN D, 25-HYDROXY 19.5 ng/mL (30-100)
--- NOTE | 2019-03-27 07:21 | NUR ---
Spoke with Fatemeh RN caring for patient and informed her what Dr. Pizarro stated which was he can have clears til about 830 if he wants breakfast just not food.
--- NOTE | 2019-03-27 08:23 | NUR ---
Follow up with Christianne FINE in wound care clinic on 04/02/19 @ 11:00am, call [phone] with any concerns
--- NOTE | 2019-03-27 09:00 | NUR ---
Junior Electrical Engineer in to talk to patient. Patient states lives at home with alone. There are no steps in the home. Physician: sendy hurst Pharmacy: [facility] services: none Patient's level of ADLs: INDEPENDENT Patient has working utilities: all working DME: walker but doesn't use it Follow-up physician's appointment after d/c: will be made by hospitalist nurse director upon discharge Does patient want to access PORTAL?: no Discharge plan discussed with patient, he lives at home alone, states he is independent in adls and ambulation, drives, he states he will be returning home when medically stable, discussed with him VNA due to him having dressing changes upon discharge, he was receptive to this, given choice of companies he chose [facility], will send a referral to [facility] when patient is medically stable for discharge. JOANNA DEL RIO
--- NOTE | 2019-03-27 10:23 | NUR ---
Dr. Garcia notified of wound care recommendations.
--- NOTE | 2019-03-27 11:25 | NUR ---
PATIENT TAKEN TO SURGERY AT THIS TIME.
--- NOTE | 2019-03-27 11:56 | NUR ---
PATIENT REFUSED PICTURE OF ABCESS. PATIENT STATES HE HAS REFUSED PHOTOS SINCE er AND WOULD CONTINUE TO REFUSE THROUGHOUT PROCESS.
--- NOTE | 2019-03-27 22:00 | NUR ---
PATIENT MEDICATED WITH MORPHINE FOR COMPLAINTS OF PERIRECTAL PAIN FROM ABSCESS. WILL MONITOR FOR EFFECTIVENESS.
[2019-03-28] VITALS: BP 140/65
--- NOTE | 2019-03-28 05:52 | NUR ---
PATIENT MEDICATED WITH MORPHINE FOR COMPLAINTS OF PERIRECTAL PAIN FROM DEBRIDEMENT.
[2019-03-28 08:00] VITALS: BP 108/54
--- NOTE | 2019-03-28 09:00 | NUR ---
case management visits with patient, he will return home when medically stable and will have [facility] home health, patient denies any other needs at this time
[2019-03-28 09:39] LABS: BASO % 0.6 % (0.0-1.0); EOS # 0.1 10*3/uL (0.0-0.4); EOS % 2.2 % (1.0-4.0); HEMATOCRIT 40.6 % (42.0-52.0); HEMOGLOBIN 13.2 g/dl (14.0-18.0); LYMPH # 1.3 10*3/uL (1.3-4.4); LYMPH % 19.6 % (27.0-41.0); MEAN CELL VOLUME 88.1 fl (80.0-94.0); MEAN CORPUSCULAR HGB 28.6 pg (27.0-31.0); MEAN CORPUSCULAR HGB CONC 32.5 g/dl (33.0-37.0); MEAN PLATELET VOLUME 11.1 fl (9.6-12.3); MONO # 0.6 10*3/uL (0.1-1.0); MONO % 9.4 % (3.0-9.0); NEUT # 4.4 10*3/uL (2.3-7.9); NEUT % 67.6 % (47.0-73.0); PLATELET COUNT AUTOMATED 217 10*3/uL (130-400); RED BLOOD COUNT 4.61 10*6/uL (4.50-5.90); RED CELL DISTRI WIDTH 12.6 % (0-14.5); WHITE BLOOD COUNT 6.5 10*3/uL (4.8-10.8)
[2019-03-28 09:50] LABS: BUN 8 mg/dl (7-24); CHLORIDE 100 mmol/L (98-107); CREATININE 0.98 mg/dL (0.70-1.30); POTASSIUM 3.9 mmol/L (3.5-5.1); SODIUM 136 mmol/L (136-145)
--- NOTE | 2019-03-28 11:43 | NUR ---
Nutritional Support Services Note: Attempting to discuss 1800cal diabetic diet with pt. Pt states he doesn't need it, he sees Dr. Le's "Retail Coordinator." Explained to patient that his HgbA1c was 9.8 and explained rationale for diet. Pt not interested. Encouraged continued good intake to promote healing of abscess. Will follow if needed. Karina Davis Rdn Ld
[2019-03-28 12:00] VITALS: BP 110/60
--- NOTE | 2019-03-28 14:44 | NUR ---
C/O PAIN TO BUTTOCK WOUND OF 8. MORPHINE GIVEN AT THIS TIME. WILL CONT TO MONITOR. CALL LIGHT IN REACH.
--- NOTE | 2019-03-28 15:44 | NUR ---
MORPHINE EFF AT THIS TIME PER PT. WILL CONT TO MONITOR.
[2019-03-28 16:00] VITALS: BP 126/49; BP 132/72
[2019-03-28 20:00] VITALS: BP 155/81
[2019-03-29] VITALS: BP 142/88
--- NOTE | 2019-03-29 01:06 | NUR ---
24 HR chart check completed.
--- NOTE | 2019-03-29 02:00 | NUR ---
PATIENT SLEEPING IN RECLINER. SAYS HE IS NOT COMFORTABLE IN THE BED AND WON'T BE SLEEPING IN IT. IV ANTIBIOTICS INFUSING ORDERED. PATIENT DENIES COMPLAINTS OF PAIN OR DISCOMFORT AT THIS TIME. DRESSING INTACT TO BUTTOCKS. RESPIRATION REGULAR AND NON-LABORED. CALL LIGHT IN REACH. WILL CONTINUE TO MONITOR.
[2019-03-29 08:00] VITALS: BP 131/70
--- NOTE | 2019-03-29 08:00 | NUR ---
IN TO ROOM. PT UP IN CHAIR. NO STATED COMPLAINTS. PT STATES HE IS HAVING PAIN AT WOUND SITE. RESPIRATIONS ARE EASY AND REGULAR. NO DISTRESS NOTED CHAIR IN LOCKED POSITION. WILL CONTINUE TO MONITOR.
--- NOTE | 2019-03-29 08:30 | NUR ---
PRN MORPHINE ADMINISTERED AT THIS TIME. WILL MONITOR FOR EFFECTIVENESS.
--- NOTE | 2019-03-29 09:00 | NUR ---
case management visits with patient, he will return home possibly tomorrow and will have [facility], patient denies any other home needs
--- NOTE | 2019-03-29 10:30 | NUR ---
PT STATES RELIEF FROM PREVIOUS PRN PAIN MEDS.
[2019-03-29 12:00] VITALS: BP 138/73
--- NOTE | 2019-03-29 12:38 | NUR ---
case management contacted [facility], spoke to Laine, patient's information given and also faxed,
--- NOTE | 2019-03-29 15:00 | NUR ---
PATIENT STATES THAT PACKING CAME OUT OF WOUND. STATES THAT HE DOES NOT WANT THE WOUND TO BE RE-PACKED AT THIS TIME. STATES IT FEELS BETTER TO BE OUT FOR A WHILE. DR. FARLEY NOTIFIED.
[2019-03-29 16:00] VITALS: BP 136/79
[2019-03-29 20:00] VITALS: BP 140/80
--- NOTE | 2019-03-29 23:08 | NUR ---
PATIENT RATES PERIRECTAL PAIN 6/10 ON PAIN SCALE. NORCO PROVIDED PER PRN ORDER.
[2019-03-30] VITALS: BP 152/86
--- NOTE | 2019-03-30 00:56 | NUR ---
DR DIAMOND NOTIFIED OF MULTIPLE ATTEMPTS AT IV ACCESS WITHOUT SUCCESS; PATIENT REFUSING FURTHER ATTEMPTS AT THIS TIME.
--- NOTE | 2019-03-30 07:45 | NUR ---
PT SITTING UP IN RECLINER, SLEEPING. NOT AROUSED AT THIS TIME. RESPIRATIONS EASY AND UNLABORED. WILL CONTINUE TO MONITOR. CALL LIGHT IN REACH.
[2019-03-30 08:00] VITALS: BP 138/79
--- NOTE | 2019-03-30 08:45 | NUR ---
ASSESSMENT COMPLETE AT THIS TIME. PT COMPLAINS OF SOME PAIN TO RIGHT BUTTOCKS BUT DENIES WANTING PAIN MEDICATION AT THIS TIME. PT STATES THAT HE THINKS HE WILL BE GOING HOME TODAY AND ASKS FOR THINGS TO GET WASHED UP. PT RESPIRATIONS EASY AND UNLABORED ON ROOM AIR. VITALS WNL. WILL CONTINUE TO MONITOR. CALL LIGHT IN REACH.
--- NOTE | 2019-03-30 09:00 | NUR ---
case management visits with patient, he stated he would be returning home today, case management will notify [facility] when patient is discharged, no other needs at this time
[2019-03-30] MEDS ORDERED: AUGMENTIN 875-875 MG PO (09:34)
[2019-03-30] MEDS ORDERED: NORCO 5-325 TA1 EACH PO (09:34)
[2019-03-30] MEDS ORDERED: VITAMIN D32000 UNI1 PO (09:34)
--- NOTE | 2019-03-30 11:45 | NUR ---
DRESSING TO RIGHT BUTTOCK APPLIED AT THIS TIME. PT TOLERATED WELL.
--- NOTE | 2019-03-30 12:00 | NUR ---
PT REFUSES DISCHARGE PHOTOS AT THIS TIME, PT REFUSED ADMISSION PHOTOS ON RIGHT BUTTOCK.
--- NOTE | 2019-03-30 12:00 | NUR ---
Discharge instructions reviewed with patient/family. Patient receptive and verbalizes understanding. Follow-up care arranged. Written instructions given to patient/family. ROHITH FREEMAN
--- NOTE | 2019-03-30 14:00 | NUR ---
case managment notified [facility] that patient is discharged to home today
--- NOTE | 2019-04-02 09:25 | NUR ---
Sp[facility] to Jeanette [facility]. She states they tried to see patient over the weekend and patient is refusing services. Weir Fisherman notified.
== END 2019-03-30 12:00 | disposition home or self-care (01) | DRG 394 ==
LOC: ED 13:05 → 4E 15:35 → EDHOLD 15:35 → 4E 16:02
PROVIDERS: Emergency Medicine; Hospitalist; Internal Medicine; ADMIT Family Medicine
PROC: 0H98XZZ Drainage of Buttock Skin, External Approach (ICD-10-PCS; principal; 2019-03-28)
DX: K61.1 Rectal abscess (principal); L02.31 Cutaneous abscess of buttock; E87.1 Hypo-osmolality and hyponatremia; E44.0 Moderate protein-calorie malnutrition; E05.90 Thyrotoxicosis, unspecified without thyrotoxic crisis or storm; E11.65 Type 2 diabetes mellitus with hyperglycemia; I10 Essential (primary) hypertension; E03.9 Hypothyroidism, unspecified; Z96.651 Presence of right artificial knee joint; M17.0 Bilateral primary osteoarthritis of knee; D64.9 Anemia, unspecified; E66.9 Obesity, unspecified; G47.30 Sleep apnea, unspecified; E55.9 Vitamin D deficiency, unspecified; K57.90 Diverticulosis of intestine, part unspecified, without perforation or abscess without bleeding; M10.9 Gout, unspecified; F31.9 Bipolar disorder, unspecified; J45.909 Unspecified asthma, uncomplicated; Z86.718 Personal history of other venous thrombosis and embolism; Z88.8 Allergy status to other drugs, medicaments and biological substances; Z79.84 Long term (current) use of oral hypoglycemic drugs; Z79.899 Other long term (current) drug therapy; Z90.49 Acquired absence of other specified parts of digestive tract; Z80.1 Family history of malignant neoplasm of trachea, bronchus and lung; Z82.5 Family history of asthma and other chronic lower respiratory diseases; Z68.34 Body mass index [BMI] 34.0-34.9, adult

== ENCOUNTER → 2020-06-20 | Outpatient (CLI) | payer OTHER ==
[~2020-06-20] MED LIST changes: +AUGMENTIN 875-875 MG PO; +NORCO 5-325 TA1 EACH PO; +VITAMIN D32000 UNI1 PO
[2020-06-20 12:01] LABS: BASO # 0.1 10*3/uL (0.0-0.1); BASO % 0.8 % (0.0-1.0); EOS # 0.1 10*3/uL (0.0-0.4); EOS % 2.2 % (1.0-4.0); HEMATOCRIT 45.7 % (42.0-52.0); LYMPH # 1.4 10*3/uL (1.3-4.4); LYMPH % 23.5 % (27.0-41.0); MEAN CELL VOLUME 85.3 fl (80.0-94.0); MEAN CORPUSCULAR HGB 28.7 pg (27.0-31.0); MEAN CORPUSCULAR HGB CONC 33.7 g/dl (33.0-37.0); MONO # 0.5 10*3/uL (0.1-1.0); MONO % 7.6 % (3.0-9.0); NEUT # 3.9 10*3/uL (2.3-7.9); NEUT % 65.2 % (47.0-73.0); PLATELET COUNT AUTOMATED 165 10*3/uL (130-400); RED BLOOD COUNT 5.36 10*6/uL (4.50-5.90); RED CELL DISTRI WIDTH 12.5 % (0-14.5)
[2020-06-20 12:16] LABS: ALBUMIN 4.1 gm/dl (3.1-4.5); ALKALINE PHOSPHATASE 126 U/L (45-117); BILIRUBIN, DIRECT 0.2 mg/dL (0.0-0.2); BUN 14 mg/dl (7-24); CHLORIDE 101 mmol/L (98-107); CHOLESTEROL 140 mg/dL (<200); CREATININE 1.19 mg/dL (0.70-1.30); HDL CHOLESTEROL 36 mg/dl (40-60); LDL CHOLESTEROL 79 mg/dL (9-159); POTASSIUM 4.4 mmol/L (3.5-5.1); SGOT/AST 11 IU/L (3-35); SGPT/ALT 34 U/L (12-78); SODIUM 135 mmol/L (136-145); TOTAL PROTEIN 7.3 gm/dL (6.4-8.2); TRIGLYCERIDES 123 mg/dl (<150); VLDL CHOLESTEROL 25 mg/dL (6-40)
== END | disposition home or self-care (01) ==
LOC: LAB 11:34
PROVIDERS: ATTEND Family Medicine
DX: R07.9 Chest pain, unspecified (principal); E11.9 Type 2 diabetes mellitus without complications; I10 Essential (primary) hypertension; E55.9 Vitamin D deficiency, unspecified

== ENCOUNTER → 2020-09-30 | Outpatient (CLI) | payer OTHER ==
[2020-09-30 14:32] LABS: BASO # 0.1 10*3/uL (0.0-0.1); BASO % 0.9 % (0.0-1.0); EOS # 0.2 10*3/uL (0.0-0.4); EOS % 1.9 % (1.0-4.0); HEMATOCRIT 46.4 % (42.0-52.0); LYMPH # 1.7 10*3/uL (1.3-4.4); LYMPH % 21.7 % (27.0-41.0); MEAN CELL VOLUME 84.8 fl (80.0-94.0); MEAN CORPUSCULAR HGB 28.3 pg (27.0-31.0); MEAN CORPUSCULAR HGB CONC 33.4 g/dl (33.0-37.0); MEAN PLATELET VOLUME 11.7 fl (9.6-12.3); MONO # 0.6 10*3/uL (0.1-1.0); MONO % 7.2 % (3.0-9.0); NEUT # 5.3 10*3/uL (2.3-7.9); NEUT % 67.8 % (47.0-73.0); PLATELET COUNT AUTOMATED 186 10*3/uL (130-400); RED BLOOD COUNT 5.47 10*6/uL (4.50-5.90); RED CELL DISTRI WIDTH 12.1 % (0-14.5); WHITE BLOOD COUNT 7.9 10*3/uL (4.8-10.8)
[2020-09-30 15:18] LABS: ALKALINE PHOSPHATASE 124 U/L (45-117); BILIRUBIN, DIRECT 0.2 mg/dL (0.0-0.2); BUN 18 mg/dl (7-24); CHLORIDE 101 mmol/L (98-107); CREATININE 1.22 mg/dL (0.70-1.30); POTASSIUM 4.2 mmol/L (3.5-5.1); SGOT/AST 15 IU/L (3-35); SGPT/ALT 33 U/L (12-78); SODIUM 136 mmol/L (136-145); TOTAL PROTEIN 7.7 gm/dL (6.4-8.2)
== END | disposition home or self-care (01) ==
LOC: LAB 13:53
PROVIDERS: Family Medicine; ATTEND Specialist
DX: Z01.818 Encounter for other preprocedural examination (principal); E11.9 Type 2 diabetes mellitus without complications; J39.8 Other specified diseases of upper respiratory tract

== ENCOUNTER → 2021-06-17 | Outpatient (CLI) | payer OTHER ==
[2021-06-17 10:53] LABS: BASO # 0.1 10*3/uL (0.0-0.1); EOS # 0.2 10*3/uL (0.0-0.4); EOS % 3.4 % (1.0-4.0); HEMATOCRIT 48.9 % (42.0-52.0); LYMPH # 1.7 10*3/uL (1.3-4.4); LYMPH % 26.1 % (27.0-41.0); MEAN CORPUSCULAR HGB CONC 33.3 g/dl (33.0-37.0); MEAN PLATELET VOLUME 12.1 fl (9.6-12.3); MONO # 0.4 10*3/uL (0.1-1.0); MONO % 6.3 % (3.0-9.0); NEUT # 4.2 10*3/uL (2.3-7.9); NEUT % 62.6 % (47.0-73.0); PLATELET COUNT AUTOMATED 177 10*3/uL (130-400); RED BLOOD COUNT 5.62 10*6/uL (4.50-5.90); RED CELL DISTRI WIDTH 12.5 % (0-14.5); WHITE BLOOD COUNT 6.7 10*3/uL (4.8-10.8)
[2021-06-17 11:11] LABS: ALBUMIN 3.9 gm/dl (3.1-4.5); BUN 19 mg/dl (7-24); CHLORIDE 101 mmol/L (98-107); CHOLESTEROL 183 mg/dL (<200); CREATININE 1.21 mg/dL (0.70-1.30); POTASSIUM 4.3 mmol/L (3.5-5.1); SGOT/AST 21 IU/L (3-35); SGPT/ALT 36 U/L (12-78); SODIUM 135 mmol/L (136-145); THYROXINE (T4) TOTAL 7.1 ug/dl (4.5-12.1); TOTAL PROTEIN 7.6 gm/dL (6.4-8.2); TRIGLYCERIDES 152 mg/dl (<150)
[2021-06-17 11:15] LABS: ALKALINE PHOSPHATASE 112 U/L (45-117); LDL CHOLESTEROL 113 mg/dL (9-159)
== END | disposition home or self-care (01) ==
LOC: LAB 09:48
PROVIDERS: ATTEND Family Medicine
DX: Z12.5 Encounter for screening for malignant neoplasm of prostate (principal); I10 Essential (primary) hypertension; R35.1 Nocturia; R53.83 Other fatigue; E11.9 Type 2 diabetes mellitus without complications; E55.9 Vitamin D deficiency, unspecified

== ENCOUNTER → 2021-07-22 | Outpatient (CLI) | payer OTHER ==
[~2021-07-22] MED LIST changes: +ASPIRIN ADULT L81 M1 PO; +K-TAB20 MEQ PO; +NOVOLOG MI100 UNIT/2 SQ; +PAXIL20 M1 PO
== END | disposition home or self-care (01) ==
LOC: CARD 00:03
PROVIDERS: ATTEND Internal Medicine Cardiovascular Disease
DX: I11.9 Hypertensive heart disease without heart failure (principal); R06.02 Shortness of breath; R07.89 Other chest pain

== ENCOUNTER → 2021-08-26 | Outpatient (CLI) | payer OTHER ==
[2021-08-26 13:36] LABS: BILIRUBIN Negative (Negative); BLOOD Negative (Negative); CLARITY Clear (Clear); COLOR Yellow (Yellow); GLUCOSE 3+ (Negative); KETONE Trace (Negative); LEUKO ESTERASE Negative (Negative); NITRITE Negative (Negative); SPECIFIC GRAVITY >= 1.030 (1.001-1.030); UROBILINOGEN 0.2 E.U./dl (0.0-1.0)
[2021-08-26 13:55] LABS: WBC 0-2 wbc/hpf (0-5)
== END | disposition home or self-care (01) ==
LOC: LAB 13:18
PROVIDERS: ATTEND Nurse Practitioner Family
DX: R30.0 Dysuria (principal)

== ENCOUNTER → 2021-08-31 | Outpatient (CLI) | payer OTHER ==
[2021-08-31 12:19] LABS: BILIRUBIN Negative (Negative); BLOOD Negative (Negative); CLARITY Clear (Clear); COLOR Yellow (Yellow); GLUCOSE 3+ (Negative); KETONE Trace (Negative); LEUKO ESTERASE Negative (Negative); NITRITE Negative (Negative); SPECIFIC GRAVITY >= 1.030 (1.001-1.030)
== END | disposition home or self-care (01) ==
LOC: LAB 11:32
PROVIDERS: ATTEND Nurse Practitioner Family
DX: R31.29 Other microscopic hematuria (principal)

== ENCOUNTER → 2021-09-21 | Outpatient (CLI) | payer OTHER ==
[2021-09-21 12:57] LABS: BUN 16 mg/dl (7-24); CREATININE 1.17 mg/dL (0.70-1.30)
== END | disposition home or self-care (01) ==
LOC: CT 12:09
PROVIDERS: ATTEND Nurse Practitioner Family
DX: K76.0 Fatty (change of) liver, not elsewhere classified (principal); R31.29 Other microscopic hematuria

== ENCOUNTER → 2021-11-02 | Outpatient (CLI) | payer OTHER ==
[2021-11-02 11:07] LABS: BASO % 0.8 % (0.0-1.0); EOS # 0.2 10*3/uL (0.0-0.4); EOS % 3.2 % (1.0-4.0); HEMATOCRIT 45.7 % (42.0-52.0); LYMPH # 1.3 10*3/uL (1.3-4.4); LYMPH % 24.2 % (27.0-41.0); MEAN CELL VOLUME 84.9 fl (80.0-94.0); MEAN CORPUSCULAR HGB 28.8 pg (27.0-31.0); MEAN CORPUSCULAR HGB CONC 33.9 g/dl (33.0-37.0); MEAN PLATELET VOLUME 11.2 fl (9.6-12.3); MONO # 0.4 10*3/uL (0.1-1.0); MONO % 7.4 % (3.0-9.0); NEUT # 3.4 10*3/uL (2.3-7.9); NEUT % 63.8 % (47.0-73.0); PLATELET COUNT AUTOMATED 158 10*3/uL (130-400); RED BLOOD COUNT 5.38 10*6/uL (4.50-5.90); RED CELL DISTRI WIDTH 12.4 % (0-14.5); WHITE BLOOD COUNT 5.3 10*3/uL (4.8-10.8)
[2021-11-02 11:23] LABS: ALKALINE PHOSPHATASE 136 U/L (45-117); BUN 17 mg/dl (7-24); CHLORIDE 99 mmol/L (98-107); CREATININE 1.21 mg/dL (0.70-1.30); POTASSIUM 4.3 mmol/L (3.5-5.1); SGOT/AST 14 IU/L (3-35); SGPT/ALT 36 U/L (12-78); SODIUM 133 mmol/L (136-145); TOTAL PROTEIN 7.3 gm/dL (6.4-8.2)
== END | disposition home or self-care (01) ==
LOC: LAB 10:48
PROVIDERS: ATTEND Family Medicine
DX: E11.9 Type 2 diabetes mellitus without complications (principal); M25.50 Pain in unspecified joint; M35.3 Polymyalgia rheumatica

== ENCOUNTER 2022-09-12 08:10 | Emergency (ER) | payer OTHER ==
[~2022-09-12] VITALS: Ht 193 cm; Wt 129.3 kg
[2022-09-12 08:33] LABS: BASO # 0.1 10*3/uL (0.0-0.1); EOS # 0.2 10*3/uL (0.0-0.4); EOS % 3.8 % (1.0-4.0); HEMATOCRIT 46.4 % (42.0-52.0); LYMPH # 1.4 10*3/uL (1.3-4.4); LYMPH % 24.1 % (27.0-41.0); MEAN CELL VOLUME 84.7 fl (80.0-94.0); MEAN CORPUSCULAR HGB CONC 34.3 g/dl (33.0-37.0); MONO # 0.5 10*3/uL (0.1-1.0); MONO % 7.9 % (3.0-9.0); NEUT # 3.6 10*3/uL (2.3-7.9); NEUT % 62.9 % (47.0-73.0); PLATELET COUNT AUTOMATED 151 10*3/uL (130-400); RED BLOOD COUNT 5.48 10*6/uL (4.50-5.90); RED CELL DISTRI WIDTH 12.2 % (0-14.5); WHITE BLOOD COUNT 5.7 10*3/uL (4.8-10.8)
[2022-09-12 08:54] LABS: ALKALINE PHOSPHATASE 112 U/L (46-116); BUN 16 mg/dl (9-23); CHLORIDE 97 mmol/L (98-107); SGPT/ALT 26 U/L (10-49); TOTAL PROTEIN 7.2 gm/dL (6.0-8.0)
[2022-09-12 09:56] VITALS: BP 135/82
== END 2022-09-12 12:10 | disposition short-term general hospital (02) ==
LOC: ED 08:10
PROVIDERS: Emergency Medicine
DX: J39.8 Other specified diseases of upper respiratory tract (principal); J45.909 Unspecified asthma, uncomplicated; E11.9 Type 2 diabetes mellitus without complications; I10 Essential (primary) hypertension; F31.9 Bipolar disorder, unspecified; M10.9 Gout, unspecified; Z88.8 Allergy status to other drugs, medicaments and biological substances; Z98.890 Other specified postprocedural states; Z90.89 Acquired absence of other organs; Z90.49 Acquired absence of other specified parts of digestive tract; Z96.651 Presence of right artificial knee joint; Z87.891 Personal history of nicotine dependence

== ENCOUNTER → 2022-10-13 | Day surgery (SDC) | payer OTHER ==
[~2022-10-13] VITALS: Ht 193 cm; Wt 133.8 kg
[~2022-10-13] MED LIST changes: +CELECOXIB200 M1 PO; +COREG12.5 M1 PO; +PAXIL30 M2 PO; +POTASSIUM CHLO20 ME3 PO; +RAMIPRIL10 MG PO
[2022-10-13 07:59] VITALS: BP 133/68
[2022-10-13 09:26] VITALS: BP 136/74
[2022-10-13 09:40] VITALS: BP 140/74
[2022-10-13 09:50] VITALS: BP 120/55
== END | disposition home or self-care (01) ==
LOC: SDC 10-08 11:00
PROVIDERS: ATTEND Ophthalmology
DX: E11.36 Type 2 diabetes mellitus with diabetic cataract (principal); H25.812 Combined forms of age-related cataract, left eye; I10 Essential (primary) hypertension; J45.909 Unspecified asthma, uncomplicated; F41.9 Anxiety disorder, unspecified; F32.A Depression, unspecified; M10.9 Gout, unspecified; Z79.899 Other long term (current) drug therapy; Z96.653 Presence of artificial knee joint, bilateral; Z88.8 Allergy status to other drugs, medicaments and biological substances; Z98.890 Other specified postprocedural states

== ENCOUNTER 2022-10-16 10:47 | Emergency (ER) | payer OTHER ==
[~2022-10-16] VITALS: Ht 193 cm; Wt 131.5 kg
[2022-10-16 10:54] VITALS: BP 172/98
[2022-10-16] MEDS ORDERED: OCUFLOX 5 ML5 ML OP (10:57)
== END 2022-10-16 12:00 | disposition home or self-care (01) ==
LOC: ED 10:47
DX: H57.89 Other specified disorders of eye and adnexa (principal); Z88.8 Allergy status to other drugs, medicaments and biological substances; Z79.899 Other long term (current) drug therapy; Z90.89 Acquired absence of other organs; Z90.49 Acquired absence of other specified parts of digestive tract; Z98.890 Other specified postprocedural states; Z87.891 Personal history of nicotine dependence

== ENCOUNTER → 2022-10-25 | Outpatient (CLI) | payer OTHER ==
[~2022-10-25] MED LIST changes: +OCUFLOX 5 ML5 ML OP
[2022-10-25 10:02] LABS: BASO # 0.1 10*3/uL (0.0-0.1); BASO % 0.9 % (0.0-1.0); EOS # 0.2 10*3/uL (0.0-0.4); EOS % 3.5 % (1.0-4.0); HEMATOCRIT 46.9 % (42.0-52.0); LYMPH # 1.3 10*3/uL (1.3-4.4); LYMPH % 22.3 % (27.0-41.0); MEAN CELL VOLUME 88.7 fl (80.0-94.0); MEAN CORPUSCULAR HGB 29.3 pg (27.0-31.0); MEAN PLATELET VOLUME 12.2 fl (9.6-12.3); MONO # 0.4 10*3/uL (0.1-1.0); MONO % 6.6 % (3.0-9.0); NEUT # 3.8 10*3/uL (2.3-7.9); PLATELET COUNT AUTOMATED 167 10*3/uL (130-400); RED BLOOD COUNT 5.29 10*6/uL (4.50-5.90); RED CELL DISTRI WIDTH 12.5 % (0-14.5); WHITE BLOOD COUNT 5.7 10*3/uL (4.8-10.8)
[2022-10-25 10:35] LABS: ALKALINE PHOSPHATASE 101 U/L (46-116); BUN 9 mg/dl (9-23); CHLORIDE 100 mmol/L (98-107); POTASSIUM 4.2 mmol/L (3.4-5.1); SGPT/ALT 26 U/L (10-49); TOTAL PROTEIN 7.1 gm/dL (6.0-8.0)
[2022-10-26 06:08] LABS: HBSAG Negative (Negative); HEP B CORE AB, IGM Negative (Negative); HEPATITIS C ANTIBODY Non Reactive (Non Reactive)
[2022-10-26 12:08] LABS: ANTI-RNP ANTIBODIES <0.2 AI (0.0-0.9); CCP ANTIBODIES IGG/IGA 5 units (0-19)
[2022-10-28 00:06] LABS: LUPUS DRVVT 45.6 sec (0.0-47.0); PTT-LA 32.3 sec (0.0-43.5)
[2022-10-28 01:06] LABS: LUPUS REFLEX INTERPRETATION Comment: (.)
[2022-10-29 16:08] LABS: HLA-B27 ANTIGEN Negative (.)
== END | disposition home or self-care (01) ==
LOC: LAB 09:05
PROVIDERS: ATTEND Orthopaedic Surgery
DX: E11.9 Type 2 diabetes mellitus without complications (principal); R53.83 Other fatigue

== ENCOUNTER → 2022-11-17 | Day surgery (SDC) | payer OTHER ==
[~2022-11-17] VITALS: Ht 193 cm; Wt 131.5 kg
[2022-11-17 07:10] VITALS: BP 143/82
[2022-11-17 08:11] VITALS: BP 148/83
[2022-11-17 08:26] VITALS: BP 151/79
[2022-11-17 08:36] VITALS: BP 148/64
[2022-11-17 09:46] VITALS: BP 145/64
== END ==
LOC: SDC 11-12 13:15
PROVIDERS: ATTEND Ophthalmology
DX: E11.36 Type 2 diabetes mellitus with diabetic cataract (principal); H25.11 Age-related nuclear cataract, right eye; I10 Essential (primary) hypertension; J45.909 Unspecified asthma, uncomplicated; F41.9 Anxiety disorder, unspecified; F32.A Depression, unspecified

== ENCOUNTER → 2023-07-05 | Outpatient (CLI) | payer OTHER | END | disposition home or self-care (01) | LOC: RESCLI 13:16 | PROVIDERS: ATTEND Internal Medicine | DX: I48.91 Unspecified atrial fibrillation (principal); E11.9 Type 2 diabetes mellitus without complications; I10 Essential (primary) hypertension; E78.5 Hyperlipidemia, unspecified; F32.9 Major depressive disorder, single episode, unspecified; E87.6 Hypokalemia; R52 Pain, unspecified; Z79.899 Other long term (current) drug therapy ==

== ENCOUNTER → 2023-11-24 | Outpatient (CLI) | payer MEDICARE, OTHER | END | disposition home or self-care (01) | LOC: US 09-02 15:00 | PROVIDERS: ATTEND Internal Medicine | DX: I73.9 Peripheral vascular disease, unspecified (principal) ==

== ENCOUNTER 2023-12-26 15:11 | Inpatient (IN) | payer MEDICARE, OTHER ==
[~2023-12-26] VITALS: Ht 193 cm; Wt 133.8 kg
[2023-12-26 15:21] VITALS: BP 130/68
[2023-12-26 15:33] LABS: BASO # 0.1 10*3/uL (0.0-0.1); BASO % 0.6 % (0.0-1.0); EOS # 0.1 10*3/uL (0.0-0.4); EOS % 1.6 % (1.0-4.0); HEMATOCRIT 44.4 % (42.0-52.0); LYMPH # 1.9 10*3/uL (1.3-4.4); LYMPH % 21.3 % (27.0-41.0); MEAN CELL VOLUME 86.7 fl (80.0-94.0); MEAN CORPUSCULAR HGB 29.3 pg (27.0-31.0); MEAN CORPUSCULAR HGB CONC 33.8 g/dl (33.0-37.0); MEAN PLATELET VOLUME 12.4 fl (9.6-12.3); MONO # 0.7 10*3/uL (0.1-1.0); NEUT % 68.2 % (47.0-73.0); PLATELET COUNT AUTOMATED 151 10*3/uL (130-400); RED BLOOD COUNT 5.12 10*6/uL (4.50-5.90); RED CELL DISTRI WIDTH 12.4 % (0-14.5); WHITE BLOOD COUNT 8.8 10*3/uL (4.8-10.8)
[2023-12-26 15:45] LABS: ACT PARTIAL THROMBO TIME 32.8 SECONDS (20.0-32.1)
[2023-12-26 15:53] LABS: ALKALINE PHOSPHATASE 105 U/L (46-116); BUN 17 mg/dl (9-23); CHLORIDE 102 mmol/L (98-107); POTASSIUM 3.8 mmol/L (3.4-5.1); SGPT/ALT 29 U/L (5-49); TOTAL PROTEIN 6.8 gm/dL (6.0-8.0)
[2023-12-26 17:00] VITALS: BP 139/90
[2023-12-26 19:00] VITALS: BP 129/71
[2023-12-26 21:00] VITALS: BP 114/90
[2023-12-26] MEDS ORDERED: HUMULIN 70/30 703 M1 SC (21:58)
[2023-12-26] MEDS ORDERED: Sotalol Hydrochloride 80 MG TAB PO SCH (22:00)
[2023-12-26] MEDS ORDERED: INSULIN LISPRO 1 UNIT/0.01 ML SQ SCH (22:00)
[2023-12-26] MEDS ORDERED: LISINOPRIL10 M1 PO (22:00)
[2023-12-26] MEDS ORDERED: ATORVASTATIN CALCIUM 20 MG TAB PO SCH (22:00)
[2023-12-26] MEDS ORDERED: SOTALOL HCL120 MG PO (22:01)
[2023-12-26] MEDS ORDERED: XARE20MG PO (22:02)
[2023-12-26] MEDS ORDERED: ATORVASTATIN CA20 M1 PO (22:02)
[2023-12-26 23:00] VITALS: BP 103/68
[2023-12-27 00:04] VITALS: BP 110/70
[2023-12-27 06:42] VITALS: BP 114/60
[2023-12-27] MEDS ORDERED: GLIMEPIRIDE 2 MG TAB PO SCH (07:30)
[2023-12-27] MEDS ORDERED: Propranolol Hydrochloride 20 MG TAB PO SCH (10:00)
[2023-12-27] MEDS ORDERED: Paroxetine Hydrochloride 10 MG TAB PO SCH (10:00)
[2023-12-27] MEDS ORDERED: LIRAGLUTIDE 6 MG/ML PEN SC SCH ×2 (10:00)
[2023-12-27 12:10] VITALS: BP 111/63
[2023-12-27] MEDS ORDERED: DIGOXIN 125 MCG TAB PO SCH (14:00)
[2023-12-27] MEDS ORDERED: FUROSEMIDE 40 MG/4 ML VIAL IV ONE (14:20)
[2023-12-27] MEDS ORDERED: FUROSEMIDE 40 MG TAB PO ONE (15:00)
[2023-12-27 15:53] VITALS: BP 108/61
[2023-12-27] MEDS ORDERED: RIVAROXABAN 20 MG TAB PO SCH (18:00)
== END 2023-12-27 16:50 | disposition home or self-care (01) | DRG 309 ==
LOC: ED 15:11 → EDHOLD 18:28
PROVIDERS: Emergency Medicine; ADMIT Internal Medicine; ATTEND Internal Medicine
DX: I48.0 Paroxysmal atrial fibrillation (principal); I50.22 Chronic systolic (congestive) heart failure; Z68.45 Body mass index [BMI] 70 or greater, adult; I11.0 Hypertensive heart disease with heart failure; E11.9 Type 2 diabetes mellitus without complications; G47.33 Obstructive sleep apnea (adult) (pediatric); E66.01 Morbid (severe) obesity due to excess calories; E78.5 Hyperlipidemia, unspecified; E86.1 Hypovolemia; Z79.899 Other long term (current) drug therapy; Z96.651 Presence of right artificial knee joint; Z79.01 Long term (current) use of anticoagulants; Z79.2 Long term (current) use of antibiotics; Z90.49 Acquired absence of other specified parts of digestive tract; Z87.891 Personal history of nicotine dependence; Z80.1 Family history of malignant neoplasm of trachea, bronchus and lung; Z82.5 Family history of asthma and other chronic lower respiratory diseases

== ENCOUNTER 2024-01-08 22:34 | Emergency (ER) | payer MEDICARE, OTHER ==
[~2024-01-08] VITALS: Wt 129.7 kg
[~2024-01-08 22:34] MED LIST changes: +ATORVASTATIN CA20 M1 PO; +HUMULIN 70/30 703 M1 SC; +LISINOPRIL10 M1 PO; +SOTALOL HCL120 MG PO; +XARE20MG PO
[2024-01-08] MEDS ORDERED: DIGOXIN125 MCG PO (22:53)
[2024-01-08] MEDS ORDERED: PROPRANOLOL PO (22:57)
[2024-01-08 23:18] LABS: BASO # 0.1 10*3/uL (0.0-0.1); BASO % 0.8 % (0.0-1.0); EOS # 0.2 10*3/uL (0.0-0.4); EOS % 2.9 % (1.0-4.0); HEMATOCRIT 45.4 % (42.0-52.0); LYMPH # 1.7 10*3/uL (1.3-4.4); LYMPH % 22.2 % (27.0-41.0); MEAN CELL VOLUME 88.2 fl (80.0-94.0); MEAN CORPUSCULAR HGB 28.7 pg (27.0-31.0); MEAN CORPUSCULAR HGB CONC 32.6 g/dl (33.0-37.0); MEAN PLATELET VOLUME 11.9 fl (9.6-12.3); MONO # 0.6 10*3/uL (0.1-1.0); MONO % 7.4 % (3.0-9.0); NEUT # 5.2 10*3/uL (2.3-7.9); NEUT % 66.4 % (47.0-73.0); PLATELET COUNT AUTOMATED 145 10*3/uL (130-400); RED BLOOD COUNT 5.15 10*6/uL (4.50-5.90); RED CELL DISTRI WIDTH 12.3 % (0-14.5); WHITE BLOOD COUNT 7.8 10*3/uL (4.8-10.8)
[2024-01-08 23:41] LABS: ALKALINE PHOSPHATASE 127 U/L (46-116); BUN 14 mg/dl (9-23); CHLORIDE 102 mmol/L (98-107); POTASSIUM 3.7 mmol/L (3.4-5.1); SGPT/ALT 30 U/L (5-49); TOTAL PROTEIN 6.5 gm/dL (6.0-8.0)
[2024-01-09] MEDS ORDERED: MAGNESIUM SULFATE 50 ML IV ONE (01:35)
[2024-01-09 04:18] VITALS: BP 130/62
== END 2024-01-09 04:57 | disposition home or self-care (01) ==
LOC: ED 22:34
PROVIDERS: Emergency Medicine
DX: I48.91 Unspecified atrial fibrillation (principal); E11.65 Type 2 diabetes mellitus with hyperglycemia; E83.42 Hypomagnesemia; D64.9 Anemia, unspecified; E78.5 Hyperlipidemia, unspecified; I10 Essential (primary) hypertension; E87.1 Hypo-osmolality and hyponatremia; F31.9 Bipolar disorder, unspecified; J45.909 Unspecified asthma, uncomplicated; M10.9 Gout, unspecified; M19.90 Unspecified osteoarthritis, unspecified site; F41.9 Anxiety disorder, unspecified; Z86.718 Personal history of other venous thrombosis and embolism; Z90.49 Acquired absence of other specified parts of digestive tract; Z90.89 Acquired absence of other organs; Z96.651 Presence of right artificial knee joint; Z98.890 Other specified postprocedural states; Z87.891 Personal history of nicotine dependence

== ENCOUNTER → 2024-07-30 | Outpatient (CLI) | payer MEDICARE, OTHER ==
[~2024-07-30] MED LIST changes: +DIGOXIN125 MCG PO; +PROPRANOLOL PO
== END | disposition home or self-care (01) ==
LOC: RESCLI 12:06
PROVIDERS: ATTEND Student in an Organized Health Care Education/Training Program
DX: I48.91 Unspecified atrial fibrillation (principal); E11.9 Type 2 diabetes mellitus without complications; E78.5 Hyperlipidemia, unspecified; F32.9 Major depressive disorder, single episode, unspecified; I10 Essential (primary) hypertension; G40.909 Epilepsy, unspecified, not intractable, without status epilepticus; Z98.890 Other specified postprocedural states; Z79.899 Other long term (current) drug therapy; Z79.01 Long term (current) use of anticoagulants